=== PATIENT | female | born 1990 | race Caucasian/White ===

== ENCOUNTER 2016-09-25 18:57 | Emergency (ER) | payer OTHER ==
--- NOTE | ~2016-09-25 | CR21 ---
[facility]. [facility] A Service of [facility] & [facility] RADIOLOGY TEXT RESULTS PATIENT: ALFREDITO DRAPER LOCATION: SED : [birth year] UNIT #: [id number] AGE: [address]: Alexandra Mg APRN SEX: F ORDER DR: [id number] [place] [id number] E MR#: [id number] #: [id number] NAME: ALFREDITO DRAPER : 1990 SEX: F STUDY DATE/TIME: 09/25/2016 19:06 UNIT: SED ROOM: STUDY DESCRIPTION: CR Ankle Min 3 Views Rt Attending Physician: Alexandra Mg A.P.R.N. Ordering Physician: Alexandra Kohli A.P.R.N. Primary Care Physician: Jo Taylor A.P.R.N. MEDICAL IMAGING REPORT This report is preliminary unless electronic signature is present. EXAM Right ankle 3 views HISTORY Pain swelling lateral side prior to arrival. Patient injured her ankle jumping on trampoline. COMMENT 3 views of the right ankle are reviewed. There is a large mild lateral soft tissue swelling. Ankle mortise is anatomic. A small amount of medial soft tissue swelling. No acute fracture or dislocation appreciated. No radiopaque foreign body. IMPRESSION Large amount of lateral, smaller amount of medial soft tissue swelling present consistent with ligamentous injury but no acute fracture or dislocation is appreciated. Dictated by... Destiny Faustin M.D. THIS IS AN ELECTRONICALLY VERIFIED REPORT Destiny Faustin M.D. at 09/26/2016 10:24 AM CRISPIN/carly TD: 09/25/2016 23:13 JOB #: [id number] MEDICAL IMAGING REPORT Page 1 of 1
[~2016-09-25 18:57] MED LIST: ALBUTEROL17 GM INH; ALLEGRA PO; AXERT12.5 MG PO; BIRTH CONTROL; BIRTH CONTROL PILL; BIRTH CONTROL PILL PO; CELEXA; CIPRO PO; CLEOCIN; FLAGYL PO; HYDROCODONE; IBUPROFEN PO; KEPPRA500 M2; ORAP2 MG PO; PATANOL5 ML; PRENATAL1 TA1; SINGULAIR PO; SYNTHROID; SYNTHROID PO; TOPAMAX PO; YAZ PO; ZOMIG ZMT5 MG/TAB PO; ZYRTEC
== END 2016-09-25 20:23 | disposition home or self-care (01) ==
LOC: SED 18:57
DX: S93.401A Sprain of unspecified ligament of right ankle, initial encounter (principal); G40.909 Epilepsy, unspecified, not intractable, without status epilepticus; F17.210 Nicotine dependence, cigarettes, uncomplicated; Z98.890 Other specified postprocedural states; X50.1XXA Overexertion from prolonged static or awkward postures, initial encounter; Y93.44 Activity, trampolining; Y92.89 Other specified places as the place of occurrence of the external cause
CPT/HCPCS: 29515; 73610; 99283